=== PATIENT | male | born 1960 | race Caucasian/White ===

== ENCOUNTER → 2020-07-07 09:44 | Outpatient (BNVA) | payer OTHER, SELFPAY | PROVIDERS: Visit Provider Anesthesiology | DX: F10.20 Alcohol dependence, uncomplicated (principal); M54.5 Low back pain; M96.1 Postlaminectomy syndrome, not elsewhere classified | CPT/HCPCS: 99202 ==

== ENCOUNTER 2020-08-30 06:25 | Outpatient (REF) | payer OTHER, SELFPAY ==
--- NOTE | ~2020-08-30 | FL_ITS ---
EXAMINATION: XR FLUOROSCOPY WITH IMAGES CLINICAL INFORMATION: M96.1 - Postlaminectomy syndrome COMPARISON: None. TECHNIQUE: Fluoroscopy performed by Abbey Ramos NP. Fluoroscopy time: 0.8 minutes DAP: 4.67 Gycm2 Images: 8 FINDINGS: There are bilateral spinal needles overlying outer aspect of the T12-L1, L1-L2, L2-L3, L3-L4 neural foramen. There is contrast seen in the nerve sheaths and some transforaminal epidural extension on each side. No visible vascular communication. FL/FL guidance in treatment room IMPRESSION: Fluoroscopy for pain management procedures.
== END 2020-08-30 06:26 | disposition home or self-care (01) ==
LOC: HO.RADIR 06:25
PROVIDERS: Visit Provider Anesthesiology
DX: M96.1 Postlaminectomy syndrome, not elsewhere classified (principal); M54.5 Low back pain; F10.20 Alcohol dependence, uncomplicated
CPT/HCPCS: 64493; 64494; 64495; Q9967

== ENCOUNTER → 2020-09-07 10:48 | Outpatient (BNVA) | payer OTHER, SELFPAY | PROVIDERS: PCP Internal Medicine; Visit Provider Anesthesiology | DX: M54.5 Low back pain (principal); M96.1 Postlaminectomy syndrome, not elsewhere classified; F10.20 Alcohol dependence, uncomplicated | CPT/HCPCS: 99212 ==

== ENCOUNTER 2020-11-01 06:26 | Outpatient (REF) | payer OTHER, SELFPAY ==
--- NOTE | ~2020-11-01 | FL_ITS ---
EXAMINATION: FL XR WITH IMAGES CLINICAL INFORMATION: Post laminectomy syndrome. COMPARISON: Fluoroscopic spot views 08/30/2020. TECHNIQUE: Fluoroscopy performed by Abbey Ramos NP. Fluoroscopy Time: 0.8 minutes. DAP: 18.89 Gycm2. Images: 9. FINDINGS: There are bilateral spinal needles overlying outer aspect of the T12-L1, L1-L2, L2-L3, L3-L4 neural foramen. There is contrast in the respective nerve sheaths with some transforaminal epidural extension. No visible vascular communication. Again, there are multilevel degenerative changes lumbar spine with associated vertebral spurring and some accentuated concavity L1 endplate as before. FL/FL guidance in treatment room IMPRESSION: Fluoroscopy for pain management procedures.
== END 2020-11-01 06:27 | disposition home or self-care (01) ==
LOC: HO.RADIR 06:26
PROVIDERS: Visit Provider Anesthesiology
DX: M96.1 Postlaminectomy syndrome, not elsewhere classified (principal); M54.5 Low back pain; F10.20 Alcohol dependence, uncomplicated
CPT/HCPCS: 64490; 64491; 64493; Q9967

== ENCOUNTER → 2020-11-09 15:08 | Outpatient (BNVA) | payer OTHER, SELFPAY | PROVIDERS: PCP Internal Medicine; Visit Provider Anesthesiology | DX: M96.1 Postlaminectomy syndrome, not elsewhere classified (principal); M54.5 Low back pain; F10.20 Alcohol dependence, uncomplicated | CPT/HCPCS: 99212 ==

== ENCOUNTER 2021-01-16 11:06 | Outpatient (REF) | payer OTHER, SELFPAY ==
[2021-01-16 13:54] LABS: Prothrombin Time 11.4 SEC (9.9-13.0)
[2021-01-16 14:08] LABS: Alanine Aminotransferase 22 U/L (0-40); Albumin Level 4.6 g/dL (3.5-5.0); Alkaline Phosphatase 46 U/L (39-117); Anion Gap 16 (12-20); Aspartate Amino Transferase 26 U/L (5-37); Bilirubin Total 0.5 mg/dL (0.0-1.0); Blood Urea Nitrogen 10 mg/dL (9-16); Calcium 9.4 mg/dL (8.4-10.2); Carbon Dioxide 25 mmol/L (22-29); Chloride 101 mmol/L (96-108); Estimated Glomerular Filt Rate > 60; Glucose Random 104 mg/dL (60-115); Sodium 138 mmol/L (135-145); Total Protein 7.7 g/dL (6.5-8.0)
== END 2021-01-16 11:07 | disposition home or self-care (01) ==
LOC: HO.10HDL 11:06
PROVIDERS: Visit Provider Anesthesiology
DX: F10.20 Alcohol dependence, uncomplicated (principal)
CPT/HCPCS: 36415; 80053; 85610

== ENCOUNTER → 2021-01-30 10:21 | Outpatient (BNVA) | payer OTHER, SELFPAY | PROVIDERS: PCP Internal Medicine; Visit Provider Anesthesiology ==

== ENCOUNTER 2021-03-03 11:14 | Day surgery (SDC) | payer OTHER, SELFPAY ==
--- NOTE | 2021-03-02 14:35 | P.CONAN_ITS ---
Documented by User: Jenifer Robles NP 03/02/21 14:36 HPI - Anesthesia Eval Consult details Narrative: 60yo M for Lumbar Spinal Cord Stimulation Trial [facility] Active Problems Active Problems: All Active Problems (Updated 07/07/20 @ 11:05 by Vik Ulloa MD) Low back pain (Acute) Postlaminectomy syndrome (Acute) Alcoholism (Acute) Past Medical History Medical History (Updated 07/07/20 @ 11:05 by Vik Ulloa MD) Alcoholism Low back pain Postlaminectomy syndrome Social History Social History Patient Tobacco Use Status: Current everyday Tobacco user Tobacco use type: Cigarette Cigarette Packs Per Day: 0.5 Cigarettes Per Day: 10.0 Use of substances other than those prescribed or required for medical reasons: Yes Substance Use Frequency: Daily Are you DNR?: No Advance Directives: No Advance Directives Information Provided: Yes Meds Allergies Allergy/AdvReac Type Severity Reaction Status Date / Time codeine AdvReac upset Verified 01/30/21 10:22 stomach Home Medications Medication Instructions Recorded Confirmed Last Taken Type amlodipine 5 mg tablet 5 mg PO DAILY 07/07/20 08/30/20 Unknown History atorvastatin 20 mg tablet 20 mg PO BEDTIME 07/07/20 08/30/20 Unknown History omeprazole 40 mg capsule,delayed 40 mg PO DAILY 07/07/20 08/30/20 Unknown History release pregabalin 150 mg capsule 150 mg PO BID 07/07/20 08/30/20 Unknown History Exam Exam Date and Time: March 02, 2021 1435 Pertinent Lab Results Pertinent Lab Results: Laboratory Tests 01/16/21 01/16/21 11:00 11:00 PT 11.4 INR 1.0 Sodium 138 Potassium 4.0 Chloride 101 Carbon Dioxide 25 BUN 10 Creatinine 0.91 Assessment and Plan Assessment Anesthesia Assessment: Chart Reviewed Documented by User: Dustin Larson MD 03/03/21 12:05 [facility] Past Medical History Medical History (Updated 07/07/20 @ 11:05 by Vik Ulloa MD) Alcoholism Low back pain Postlaminectomy syndrome Family History Family history of problems with anesthesia: No Surgical History History of Problems with Anesthesia: No Social History Social History Patient Tobacco Use Status: Current everyday Tobacco user Tobacco use type: Cigarette Cigarette Packs Per Day: 0.5 Cigarettes Per Day: 10.0 Use of substances other than those prescribed or required for medical reasons: Yes Substance Use Frequency: Daily Are you DNR?: No Advance Directives: No Advance Directives Information Provided: Yes Meds Allergies Allergy/AdvReac Type Severity Reaction Status Date / Time codeine AdvReac upset Verified 01/30/21 10:22 stomach Home Medications Medication Instructions Recorded Confirmed Last Taken Type amlodipine 5 mg tablet 5 mg PO DAILY 07/07/20 08/30/20 Unknown History atorvastatin 20 mg tablet 20 mg PO BEDTIME 07/07/20 08/30/20 Unknown History omeprazole 40 mg capsule,delayed 40 mg PO DAILY 07/07/20 08/30/20 Unknown History release pregabalin 150 mg capsule 150 mg PO BID 07/07/20 08/30/20 Unknown History Exam Airway Mallampati Class: III TM Dist: >3cm Neck ROM: Full Denture: Upper and Lower Heart: rrr +s1s2 Lungs: cta b/l Assessment and Plan Assessment Anesthesia Assessment: Anesthesia Plan Discussed Final Anesthetic Review Family History of Problems with Anesthesia: No History of Problems with Anesthesia: No NPO: Yes ASA Class: III Final Preanesthetic Review: No Changes in Pt Med Stat, Meds/Allgs Chart Reviewed, Consent Obtained/Reviewed and Anes Risks/Benef Reviewed Patient Risk: Intermediate Procedure Risk: Intermediate Assessment/Block/Sedation in SS: Assess/Block/Sedation-SS Anesthetic Plan Anesthetic Plan: MAC: and Agree w/ Assess. and Plan Disposition: Standard PACU
--- NOTE | ~2021-03-03 | FL_ITS ---
EXAMINATION: XR FLUOROSCOPY WITH IMAGES CLINICAL INFORMATION: Lumbar spinal cord stimulator trial. COMPARISON: None. TECHNIQUE: Fluoroscopy performed by Dr. Vik Ulloa. Fluoroscopy time: 2.4 minutes DAP: 34.1 mGycm2 Images: 4 FINDINGS: There are 2 posterior epidural stimulators overlying the T7-T8 through T9-T10 disc levels. There is moderate spondylosis dorsal spine. No lytic process. Posterior spinal epidural stimulators as described above. FL/FL guidance in OR IMPRESSION: Fluoroscopy was provided to referring physician during spinal stimulator insertion. Visualized bones and soft tissues are grossly unremarkable.
[2021-03-03 11:29] VITALS: BMI 24.2
[2021-03-03 11:38] VITALS: BP 137/83; PULSE 83; RESP 16; TEMP 36.5; O2SAT 98
[2021-03-03] MEDS: Lactated Ringers 1,000 ML 100 ML IVCONT (11:46)
--- NOTE | 2021-03-03 13:09 | P.OP_ITS ---
Operative Note Operative Note Date of Service: 03/03/21 Narrative: Siddhartha is very pleasant 60 years old gentleman who came today into the operating room for trial of spinal cord stimulator for the treatment of post laminectomy syndrome. Preoperatively patient received cefasolin 2 g approxim ately 30 minutes before the procedure. After obtaining informed consent the patient was brought to the operating room, HE was positioned prone on operating table, [place] [employer] monitors were applied and patient was deeply sedated.? Time-out was performed delineating correct site, side, the nature of the procedure, patient's allergy, preoperative antibiotic if needed.? All operating room staff was participating in OR time-out procedure. Patient's entire back was prepped with DuraPrep twice and draped with full body fenestrated drape.? Sterilely draped C-arm was brought over operating field and sqare picture of T11-T12 L1 L2 vertebrae as were demonstrated on the screen.? Attention FIRST? was concentrated on the T12-L1 epidural interspace.? The location of the projection of the right pedicle center of the? L2 vertebra was found on the skin using C-arm.? This location was injected with mixture of lidocaine 2% and Marcaine 0.5% 5 cc.? After that 11 blade was used to make a tomas on the skin.? 10 cm 14 gauge? introducer epidural needle was inserted through the tomas and advanced to? T12-L1 epidural interspace.? The advancement of the needle was performed on anterior posterior and lateral views.? Guitar wire and loss of resistance technique were used to locate epidural space.? When guitar wire was spread in the epidural fashion, epidural lead was inserted throu gh the skin and it was advanced to middle of T8 position? SLIGHTLY left OF THE MIDLINE.? After that location of the projection of the LEFT pedicle center of the L2 vertebra was found on the skin using C-arm.? This location was injected with mixture of lidocaine 2% and Marcaine 0.5% 5 cc.? After that 11 blade was used to make a tomas on the skin.? 10 cm 14 gauge curved introducer epidural needle was inserted through the tomas and advanced to L1-L2 epidural interspace.? The advancement of the needle was performed on anterior posterior and lateral views.? Guitar wire and loss of resistance technique were used to locate epidural space.? When guitar wire was spread in the epidural fashion, epidural lead was inserted through the needle and advanced to the middle of T9 epidural interspace slightly right to the existing electrode. Impedance was checked and was satisfactory .The needles were withdrawn, the stylette wires were removed from the epidural leads.? The anchoring devices were dislodged on the leads and advanced to the level of the skin.? The anchoring devices were sutured with two 0-0 silk sutures per each anchor to the skin of the patient. The central fixation screw of each anchor was rotated until three clicks were heard. The leads were connected to testing device.? Bacitracin ointment was applied to the entrance point of bilateral needles.? Sterile dressing was applied to the patient's back.? The testing device was also glued to the patient's back.?
--- NOTE | 2021-03-03 13:09 | MHC.SHP ---
Pre-Procedural Eval Section A Date of Service: 03/03/21 The patient is an INPATIENT: No Changes since office visit: Yes Patient answered all questions The History & Physical has been completed within 30 days and I have reviewed it.: No Section B Chief Complaint: low back pain,postlaminectomy Details of Present Illness: As above Relevant Family History (Specify if Yes): No Relevant Social History: None Present Medications: see Short Stay Collaborative assessment Medical History: No relevant PMH History of Previous Operations: Relevant previous surgery/procedure and date(s) Allergies: Allergies Allergy/AdvReac Type Severity Reaction Status Date / Time codeine AdvReac upset Verified 01/30/21 10:22 stomach Review of Systems Sugical H&P ROS: Negative: Constitution, Cardiovascular, Respiratory, Neurological, Psychiatric, Hem-Onc, Allergic/Immunologic, Gastrointestinal, Genitourinary, Musculoskeletal, Integumentary, Endocrine and Eyes/Ears/Nose/Throat Exam Surgical H&P Exam: Normal: HEENT, Normal: Heart, Normal: Lungs, Normal: Extremities, Normal: Abdomen, Normal: Skin and Normal: Neurological Plan Diagnosis/Plan: Unchanged I have reviewed the history and physical and performed a pertinent physical examination on my patient. No changes have occurred unless specified.
--- NOTE | 2021-03-03 14:28 | PM.OP ---
Brief Operative Note Date of Service: 03/03/21 Pre-op diagnosis: Postlaminectomy syndrome lumbar spine Post-op diagnosis: same Procedure: Trial of Nevro spinal cord stimulator Implants: None permanent Surgeon: Vik Ulloa MD Anesthesia: MAC Was an Claim Analyst used for this Procedure?: No Estimated blood loss (mL): 3 Pathology: none sent Condition: stable Disposition: PACU
[2021-03-03 14:30] VITALS: BP 122/63; PULSE 98; RESP 16; TEMP 36.1; O2SAT 99
[2021-03-03 14:35] VITALS: BP 136/90; PULSE 82; RESP 16; O2SAT 97
[2021-03-03 14:45] VITALS: BP 152/86; PULSE 88; RESP 16; O2SAT 97
[2021-03-03 15:00] VITALS: BP 156/88; PULSE 81; RESP 16; TEMP 36.1; O2SAT 97
[2021-03-03] MEDS: oxyCODONE HCl Immed Release 5 MG TABLET 10 MG PO (15:20)
== END 2021-03-03 15:49 | disposition home or self-care (01) ==
PROVIDERS: PCP Internal Medicine; Visit Provider Anesthesiology
PROC: (CPT 63650; principal; 2021-03-03 13:00)
DX: M54.50 Low back pain, unspecified (principal); M96.1 Postlaminectomy syndrome, not elsewhere classified
CPT/HCPCS: 63650; C1778; J0690; J2250; J3010

== ENCOUNTER → 2021-03-09 10:28 | Outpatient (BNVA) | payer OTHER, SELFPAY | PROVIDERS: PCP Internal Medicine; Visit Provider Anesthesiology | DX: M96.1 Postlaminectomy syndrome, not elsewhere classified (principal); M54.50 Low back pain, unspecified; B19.20 Unspecified viral hepatitis C without hepatic coma; F10.20 Alcohol dependence, uncomplicated; F17.210 Nicotine dependence, cigarettes, uncomplicated; Z88.6 Allergy status to analgesic agent | CPT/HCPCS: 99212 ==

== ENCOUNTER → 2021-03-10 10:23 | Outpatient (BNVA) | payer OTHER, SELFPAY | PROVIDERS: PCP Internal Medicine; Visit Provider Anesthesiology ==

== ENCOUNTER → 2021-03-20 15:22 | Outpatient (BNVA) | payer OTHER, SELFPAY | PROVIDERS: PCP Internal Medicine; Visit Provider Anesthesiology ==

== ENCOUNTER → 2021-04-17 14:05 | Outpatient (BNVA) | payer OTHER, SELFPAY | PROVIDERS: Visit Provider Anesthesiology ==

== ENCOUNTER 2021-06-23 06:04 | Day surgery (SDC) | payer OTHER, SELFPAY ==
[2021-06-19 14:03] VITALS: BMI 24.2
--- NOTE | 2021-06-22 10:38 | P.CONAN_ITS ---
Documented by User: Jeniefr Robles NP 06/22/21 10:41 HPI - Anesthesia Eval Consult details Narrative: 60yo M for Lumbar Spinal Cord Stimulation Implant s/p trial 02/2021 with MAC [facility] Active Problems Active Problems: All Active Problems (Updated 07/07/20 @ 11:05 by Vik Ulloa MD) Low back pain (Acute) Postlaminectomy syndrome (Acute) Alcoholism (Acute) Past Medical History Medical History Alcoholism Low back pain Postlaminectomy syndrome Family History Family history of problems with anesthesia: No Surgical History History of Problems with Anesthesia: No Social History Social History Patient Tobacco Use Status: Current everyday Tobacco user Tobacco use type: Cigarette Cigarette Packs Per Day: 0.5 Cigarettes Per Day: 10.0 Use of substances other than those prescribed or required for medical reasons: No Are you DNR?: No Advance Directives: No Advance Directives Information Provided: Yes Recently lost weight without trying: No Nutrition Risks: No Nutritional Risk Meds Allergies Allergy/AdvReac Type Severity Reaction Status Date / Time codeine AdvReac upset Verified 03/20/21 15:23 stomach Home Medications Medication Instructions Recorded Confirmed Last Taken Type amlodipine 5 mg 5 mg PO DAILY 07/07/20 08/30/20 06/23/21 History tablet atorvastatin 20 20 mg PO BEDTIME 07/07/20 08/30/20 Unknown History mg tablet omeprazole 40 mg 40 mg PO DAILY 07/07/20 08/30/20 Unknown History capsule,delayed release pregabalin 150 mg 150 mg PO BID 07/07/20 08/30/20 Unknown History capsule Exam Exam Date and Time: June 22, 2021 1038 Height,Weight and Vital Signs: Height 5 ft 6 in Weight 68.039 kg Pertinent Lab Results Pertinent Lab Results: Laboratory Tests ?? 01/16/21 01/16/21 ?? 11:00 11:00 PTPT ?11.4 ? INRINR ?1.0 ? SodiumSodium ? ?138 PotassiumPotassium ? ?4.0 ChlorideChloride ? ?101 CarbonCarbon Dioxide ? ?25 BUNBUN ? ?10 CreatinineCreatinine ? ?0.91 Assessment and Plan Assessment Anesthesia Assessment: Chart Reviewed Final Anesthetic Review Family History of Problems with Anesthesia: No History of Problems with Anesthesia: No Documented by User: Kristyn Lauren MD 06/23/21 07:50 PMF Past Medical History Medical History Alcoholism Low back pain Postlaminectomy syndrome Social History Social History Patient Tobacco Use Status: Current everyday Tobacco user Tobacco use type: Cigarette Cigarette Packs Per Day: 0.5 Cigarettes Per Day: 10.0 Use of substances other than those prescribed or required for medical reasons: No Are you DNR?: No Advance Directives: No Advance Directives Information Provided: Yes Recently lost weight without trying: No Nutrition Risks: No Nutritional Risk Meds Allergies Allergy/AdvReac Type Severity Reaction Status Date / Time codeine AdvReac upset Verified 03/20/21 15:23 stomach Home Medications Medication Instructions Recorded Confirmed Last Taken Type amlodipine 5 mg 5 mg PO DAILY 07/07/20 08/30/20 06/23/21 History tablet atorvastatin 20 20 mg PO BEDTIME 07/07/20 08/30/20 Unknown History mg tablet omeprazole 40 mg 40 mg PO DAILY 07/07/20 08/30/20 Unknown History capsule,delayed release pregabalin 150 mg 150 mg PO BID 07/07/20 08/30/20 Unknown History capsule Exam Airway Mallampati Class: I (Edentulous) TM Dist: >3cm Loose/Missing/Broken Teeth: Yes, Upper and Lower Heart: RRR Lungs: CTA Assessment and Plan Assessment Anesthesia Assessment: Anesthesia Plan Discussed Final Anesthetic Review NPO: Yes ASA Class: II Final Preanesthetic Review: Meds/Allgs Chart Reviewed, Consent Obtained/Reviewed and Anes Risks/Benef Reviewed Patient Risk: Low Procedure Risk: Intermediate Anesthetic Plan Anesthetic Plan: GA Disposition: Standard PACU
[2021-06-23] VITALS (7 sets, daily range): BP systolic 115–142; BP diastolic 74–90; PULSE 70–94; RESP 12–20; TEMP 36.9–37.2; O2SAT 96–100; BMI 24.2
--- NOTE | ~2021-06-23 | FL_ITS ---
EXAMINATION: XR FLUOROSCOPY WITH IMAGES CLINICAL INFORMATION: Lumbar spinal cord stimulator implant. COMPARISON: None. TECHNIQUE: Fluoroscopy performed by Dr. Vik Ulloa. Fluoroscopy time: 6.8 minutes DAP: 24.8 Gy-cm2 Images: 4 FINDINGS: There are 4 images of the lower dorsal spine obtained. There are 2 spinal cord stimulator implants seen in the posterior epidural space extending from T8 through T12 vertebrae. FL/FL guidance in OR IMPRESSION: Posterior epidural lower thoracic spinal stimulator insertion performed from at fluoroscopy.
[2021-06-23] MEDS: Lactated Ringers 1,000 ML 100 ML IVCONT (06:36)
--- NOTE | 2021-06-23 07:34 | MHC.SHP ---
Pre-Procedural Eval Section A Date of Service: 06/23/21 Section B Chief Complaint: postlaminectomy syndrome Details of Present Illness: As Above Relevant Family History (Specify if Yes): No Relevant Social History: None Present Medications: see Short Stay Collaborative assessment Medical History: No relevant PMH History of Previous Operations: Relevant previous surgery/procedure and date(s) Allergies: Allergies Allergy/AdvReac Type Severity Reaction Status Date / Time codeine AdvReac upset Verified 03/20/21 15:23 stomach Review of Systems Sugical H&P ROS: Negative: Constitution, Cardiovascular, Respiratory, Neurological, Psychiatric, Hem-Onc, Allergic/Immunologic, Gastrointestinal, Genitourinary, Musculoskeletal, Integumentary, Endocrine and Eyes/Ears/Nose/Throat Exam Surgical H&P Exam: Normal: HEENT, Normal: Heart, Normal: Lungs, Normal: Extremities, Normal: Abdomen, Normal: Skin and Normal: Neurological Plan Diagnosis/Plan: Unchanged I have reviewed the history and physical and performed a pertinent physical examination on my patient. No changes have occurred unless specified.
[2021-06-23] MEDS: Albuterol Sulfate (0.083%) 2.5 MG/3 ML VIAL.NEB INHALE (07:50)
--- NOTE | 2021-06-23 10:29 | W.PM.OPN ---
Operative Note Operative Note Date of Service: 06/23/21 Narrative: Siddhartha is very pleasant 60 years old gentleman who came today the operating room for the implant of Nevro spinal cord stimulator for the treatment of mostly axial lower back pain . After obtaining informed consent patient was brought to the operating room, he was positioned supine on the stretcher, [place] [employer] of [employer] monitors were applied and patient was induced with general anesthesia with endotracheal intubation.? After that patient was transferred on the operating table prone, all pressure points were protected. ? Time-out was performed delineating correct site, side, the nature of the procedure, patient's allergy, preoperative antibiotic if needed.? All operating room staff was participating in OR time-out procedure. Time-out was performed delineating correct site, side, the nature of the procedure, patient's allergy, preoperative antibiotic.? All operating room staff was participating in OR time-out procedure. Patient's entire back was prepped with DuraPrep twice and draped with full body drape including [place] film.? Sterilely draped C-arm was brought over operating field and square picture of T12, L1, L2?vertebrae? were demonstrated on the screen.? The location of the lower lumbar spine fusion hardware was noted on the screen. THE PROJECTION OF? L1-L2 and L3?SPINOUS PROCESSES TO THE SKIN WERE INFILTRATED WITH LIDOCAINE 2% MIXED WITH BUPIVACAINE 0.5%.? 6 CM LONG VERTICAL INCISION using a 10 blade scalpel WAS PERFORMED IN STRICT MIDLINE VERTICAL FASHION.? THOROUGH HEMOSTASIS WAS PERFORMED using electrocautery. ?Thorough tissue dissections was performed until prevertebral fascia was freed from overlying tissues.? Attention FIRST? was concentrated on the RIGHT T12-L1 epidural interspace.? The location of the projection of the right pedicle center of the?L2?vertebra was found on the prevertebral fascia using C-arm. 10 cm 14 gauge straight introducer epidural needle was inserted through the fascia and advanced toward?T12-L1 epidural interspace.? The advancement of the needle was performed on anterior posterior and lateral views.? Guitar wire and loss of resistance technique were used to locate epidural space.?When loss of resistance was felt in the needle, guitar wire was obtained inserted into the needle and spread in epidural fashion. After that epidural lead was inserted through the needle and it was advanced to the position in the POSTERIOR EPIDURAL SPACE Slightly right to MIDLINE at the posterior T8 vertebral body body epidural space. After that location of the projection of the LEFT pedicle center of the L2 vertebra was found -using C-arm.? This location was injected with mixture of lidocaine 2% and Marcaine 0.5% 5 cc.? Again here 10 cm 14 gauge straight epidural needle was inserted through the prevertebral fascia and advanced to T12-L1 intervertebral interspace now on the left side.? Loss of resistance to air technique was used to locate epidural space and guitar wire was used to confirm position of the epidural space. When guitar wire was spread in the epidural fashion, epidural lead was inserted through the needle and advanced to the T9 POSTERIOR EPIDURAL SPACE?LEFT to the existing LEAD.? THE LOCATION OF BOTH LEADS WAS VERIFIED ON ANTERIOR POSTERIOR AND LATERAL VIEWS. After satisfactory position of the leads were established the needles were withdrawn, the stylette wires were removed from the epidural leads.? The anchoring devices were dislodged on the leads and advanced to the level of the prevertebral fascia.? The anchoring devices were advanced along the epidural leads and dislodged on epidural leads at the level of prevertebral fascia.? They were sutured to prevertebral fascia with 2 separate Tycron 1-0 sutures per each anchoring device.? The fixating screws were fixed until 3 clicks were heard on each anchoring device. After that the wound was irrigated with copious amount of Vancomycin containing normal saline and packed with Vancomycin soaked 4 x 4. ?After that attention was concentrated on the left upper buttock??of the patient?where he wanted the? battery to be implanted.?Using 10 scalpel 6 cm long horizontal incision was performed 3 cm below the projection to the skin of the left iliac creest. ? The wound was deepened and widened and thorough hemostasis was performed. The pocket was created to accommodate the battery. Irrigation with vancomycin containing saline was performed.After that the? tunneling device was used to connect midline incision and the left upper buttock incision. Thorough hemostasis was performed. ?? After that tunneling device was used to connect both wounds and dislodge epidural leads from midline wound to the lateral wound in the upper Left buttock..? The epidural lead's contacting ends were connected to the battery. The impedance was satisfactory. After that both wounds were thoroughly irrigated with normal saline containing vancomycin.? Tycron 1 0 Sutures were applied to the most superior lateral and most superior medial corners of the? wound.? Those sutures were tied after the battery was inserted into the pocket with the epidural leads collected behind the body of the battery.. After that 0 [place] sutures were used to close both wounds.?0-2 [place] surures were used to approximate the level of the skin on the both wounds.? [place] were applied to skin level.? Bacitracin ointment was smeared on the staple line.? Sterile dressing was applied.? Abdominal binder was applied.? The patient was transferred to the stretcher, awaken, and in stable condition transferred to PACU.?
--- NOTE | 2021-06-23 10:37 | P.BOP_ITS ---
Brief Operative Note Date of Service: 06/23/21 Pre-op diagnosis: Postlaminectomy syndrome Post-op diagnosis: same Procedure: Implantation of Nevro spinal cord stimulator. Implants: implantation of the Nevro spinal cord stimulator battery omnia and 2 epidural leads in thoracic position. Surgeon: Vik Ulloa MD Anesthesia: GETA Was an Grain Unloader Machine used for this Procedure?: No Estimated blood loss (mL): 10 Pathology: none sent Condition: stable Disposition: PACU
== END 2021-06-23 12:22 | disposition home or self-care (01) ==
PROVIDERS: PCP Internal Medicine; Visit Provider Anesthesiology
PROC: (CPT 63685; principal; 2021-06-23 07:30)
DX: M96.1 Postlaminectomy syndrome, not elsewhere classified (principal); M54.50 Low back pain, unspecified; Z96.643 Presence of artificial hip joint, bilateral; Z86.19 Personal history of other infectious and parasitic diseases; Z79.899 Other long term (current) drug therapy; Z88.8 Allergy status to other drugs, medicaments and biological substances; F10.20 Alcohol dependence, uncomplicated; F17.210 Nicotine dependence, cigarettes, uncomplicated
CPT/HCPCS: 63685; 63650 ×2; 94640; C1713; C1778; C1787; C1816; J0690; J1100; J1170; J2250; J2370; J2405; J3010; J3370

== ENCOUNTER → 2021-06-29 10:00 | Outpatient (BNVA) | payer OTHER, SELFPAY | PROVIDERS: PCP Internal Medicine; Visit Provider Anesthesiology | DX: M54.50 Low back pain, unspecified (principal); M96.1 Postlaminectomy syndrome, not elsewhere classified; F10.20 Alcohol dependence, uncomplicated | CPT/HCPCS: 99212 ==

== ENCOUNTER → 2021-07-06 09:59 | Outpatient (BNVA) | payer OTHER, SELFPAY | PROVIDERS: PCP Internal Medicine; Visit Provider Anesthesiology | DX: M54.50 Low back pain, unspecified (principal); M96.1 Postlaminectomy syndrome, not elsewhere classified; F10.20 Alcohol dependence, uncomplicated; Z96.82 Presence of neurostimulator | CPT/HCPCS: 99212 ==

== ENCOUNTER 2021-07-13 | Outpatient (REF) | payer OTHER, SELFPAY | END 2021-07-13 00:01 | LOC: HO.LAB | PROVIDERS: PCP Internal Medicine; Visit Provider Anesthesiology | DX: M96.1 Postlaminectomy syndrome, not elsewhere classified (principal); G97.1 Other reaction to spinal and lumbar puncture; M54.50 Low back pain, unspecified; F10.20 Alcohol dependence, uncomplicated; F17.210 Nicotine dependence, cigarettes, uncomplicated; Z96.82 Presence of neurostimulator; Z88.6 Allergy status to analgesic agent; Z48.02 Encounter for removal of sutures | CPT/HCPCS: 99212 ==

== ENCOUNTER → 2021-08-03 08:32 | Outpatient (BNVA) | payer OTHER, SELFPAY | PROVIDERS: PCP Internal Medicine; Visit Provider Anesthesiology | DX: M96.1 Postlaminectomy syndrome, not elsewhere classified (principal); M54.50 Low back pain, unspecified; F10.20 Alcohol dependence, uncomplicated; R51.9 Headache, unspecified | CPT/HCPCS: 99212 ==

== ENCOUNTER 2021-08-08 06:17 | Outpatient (REF) | payer OTHER, SELFPAY ==
--- NOTE | ~2021-08-08 | FL_ITS ---
EXAMINATION: XR FLUOROSCOPY WITH IMAGES CLINICAL INFORMATION: Other reaction to spinal and lumbar puncture. Blood patch. COMPARISON: Previous exam June 2021. TECHNIQUE: Fluoroscopy performed by Rachel. Fluoroscopy time: 0.4 minutes DAP: 6 Gycm2 Images: 1 FINDINGS: Image demonstrates 2 leads in the lower thoracic spinal canal. FL/FL guidance in treatment room IMPRESSION: Fluoroscopy guidance for pain management procedure.
== END 2021-08-08 06:18 | disposition home or self-care (01) ==
LOC: HO.RADIR 06:17
PROVIDERS: Visit Provider Anesthesiology
DX: G97.1 Other reaction to spinal and lumbar puncture (principal); M54.50 Low back pain, unspecified; M96.1 Postlaminectomy syndrome, not elsewhere classified; F10.20 Alcohol dependence, uncomplicated
CPT/HCPCS: 62273; J0690; Q9967

== ENCOUNTER 2023-01-28 08:29 | Outpatient (AMB) | payer OTHER, SELFPAY ==
--- NOTE | 2023-01-28 08:33 | MHC.OFFVIS ---
Intake Vital Signs 01/28/23 08:39 Height 5 ft 6 in Weight 145 lb 2 oz BMI 23.4 BP 184/96 H Blood Pressure Location Rt brachial Position Sitting Pulse 100 Pulse Source Pulse Oximeter Pulse Oximetry (%) 99 Oxygen Delivery Method Room Air Intake Visit Reasons: SCS ISSUES Intake Note: Pt here for eval of SCS -states stopped working 1 week ago. Denies any strenuous activity. Called [facility] and spoke with Lopez who did testing over the phone and believes it could be lead wires. Pt c/o LBP rad down R LE Allergies codeine Adverse Reaction (Verified 01/28/23 08:41) upset stomach Medication List - Last Reconciled 01/28/23 by Kristyn Hammond RN alprazolam 0.5 mg PO ONCE 1 day amlodipine 5 mg PO DAILY atorvastatin 20 mg PO BEDTIME voapaarglh-aiklgybmxsobe-mxoy 50-300-40 mg (Fioricet) 1 cap PO Q6H PRN 30 days cephalexin 1,000 mg (2 x 500 mg) PO Q8H 14 days omeprazole 40 mg PO DAILY pregabalin 150 mg PO BID tizanidine 2 mg PO TID PRN 30 days HPI HPI Comments History of Present Illness Details Siddhartha is in the office as a follow-up after implantation of spinal cord stimulation. The device was implanted 1 year ago. It was working very well for the year however now patient reports that it stopped covering his pain. He reports again pain across the lumbar spine which is not affected by spinal cord stimulator. He denies any acute trauma, unusual movements, strenuous exercise. The patient nevertheless will be sent for the x-ray of the lumbar spine. If x-ray demonstrates appropriate position of the leads of the device MRI of the lumbar spine needs to be repeated. He has postlaminectomy syndrome and he had 2 surgeries on his back. He has min ectomy on lower lumbar spine but he has no hardware in the lower lumbar spine. Prior: ?lower back pain with most of his pain is in upper lumbar spine above the level of his surgery he reports tenderness on palpation in the projection of L1-L2 and L3 may be even L4 vertebra.? Multiple injection were performed to him as below which resulted in no pain improvement.? He had 1 week ago went for trial of [employer] spinal cord stimulator.? He reports that he has at least 75% pain improvement on the trial with spinal cord stimulator.? ?His past medical history significant for?hepatitis C. he has past surgical history of bilateral hip replacement and hernia repair.? He received multiple injections from 's office including epidural steroid injections, caudal steroid injections, facet joint injections, he reports no alleviation of the pain upon those injections.? He was a subject of physical therapy multiple times and he continues to do HEP.? L1-L2-L3-L4 medial branch block was performed to treat lower back pain.? It was diagnostic on the left side because patient reported pain radiating into the left lower extremity.? He reported complete pain relieve on the left side however he reported few hours after the injection pain on the right started to get stronger.? I repeated L1-L2-L3-L4 medial branch block bilateral on him to establish proper pain generator.? This time unfortunately patient said that the injection was not at all helpful for him. [facility] Medical History (Updated 01/28/23 @ 08:58 by Vik Ulloa MD) Post-dural puncture headache Low back pain Postlaminectomy syndrome Alcoholism Surgical History (Updated 07/04/21 @ 11:10 by Marina Back RN) Status post insertion of nerve stimulator Social History Patient Tobacco Use Status: Current everyday Tobacco user Tobacco use type: Cigarette Cigarette Packs Per Day: 0.5 Cigarettes Per Day: 10.0 Review of Systems Const All systems reviewed & are unremarkable except as noted in HPI and below Neuro Denies Abnormal speech present Physical Exam Vital Signs: Last Vital Signs Pulse 100 01/28/23 08:39 BP 184/96 H 01/28/23 08:39 Pulse Ox 99 01/28/23 08:39 Oxygen Delivery Method Room Air 01/28/23 08:39 BMI result Body Mass Index 23.4 Const Nutritional Appearance: obese morbidly obese Eyes General: appearance normal, both eyes and all related structures Pupils: Equal, round and reactive pupils present EOM: EOMs intact bilaterally Neck Neck: Yes full ROM Chest Chest palpation & inspection: normal inspection of the chest Resp Effort & Inspection: normal respiratory effort, able to speak in complete sentences, normal respiratory pattern, no audible wheezes and no cough Cardio Jugular venous distension: no JVD GI Inspection: Yes normal to inspection Back/Spine/Pelvis Other: Tenderness of palpation in paraspinal spinal region in projection of L1-L2 L3 and L4 vertebra. Very well-healed scar in the projection L4-5 and S1 vertebra paraspinal regions and spinal regions in projection of L5 are L5 and S1 vertebra is are not tender on palpation. Flexing forward alleviates his pain and flexing backward aggravates his pain. Straight leg rising is negative for pain increase. Neri test is negative for pain increase. Lateral hip rotation aggravates pain in the hip but does not cause significant pain in the groin. Most likely this is a result of bilateral hip surgery. He denies incontinence with bowel and bladder. He denies urinary retention. He is able to stand on his toes and his heels demonstrating normal strength of bilateral lower extremities. Valsalva maneuver is negative for pain increase. Neuro General: CN's II-XI intact bilaterally Cranial nerves: Yes Equal, round and reactive pupils present Speech: No Abnormal speech present Gait exam (Neuro): Normal gait present Motor exam (neuro): 5/5 motor strength present throughout Sensory Exam: double simultaneous stimulation for sensation normal Extrem General: No pedal edema Assessment & Plan Assessment & Plan (1) Spinal cord stimulator dysfunction: Code(s): T85.192A - Other mechanical complication of implanted electronic neurostimulator of spinal cord electrode (lead), initial encounter (2) Low back pain: Code(s): M54.5 - Low back pain (3) Postlaminectomy syndrome: Code(s): M96.1 - Postlaminectomy syndrome, not elsewhere classified (4) Alcoholism: Code(s): F10.20 - Alcohol dependence, uncomplicated (5) Spondylosis of lumbar region without myelopathy or radiculopathy: Code(s): M47.816 - Spondylosis without myelopathy or radiculopathy, lumbar region Plan Patient after 1 year suffers from increased pain which is not covered by his spinal cord stimulator. He reported that for years it was a good coverage which relieve his pain however 1 week ago the pain came back as it was before. He reports that this is the same in nature pain he had when he had this procedure done with me. I will schedule him for x-ray of the thoracic spine to verify position of the leads. Possibility exist on further disease progression and MRI needs to be scheduled if leads are positioned appropriately. I will send him for x-ray of the thoracic spine AP lateral to verify position of the epidural leads. If epidural leads are in satisfactory position we would need to repeat MRI for the patient. Orders: Orders XR thoracic spine 3V Today T85.192A - Other mechanical complication of implanted electronic neurostimulator of spinal cord electrode (lead), initial encounter Coding Level of Care Code Est Pt Level 4 (82029) Diagnoses Spinal cord stimulator dysfunction T85.192A Low back pain M54.5 Postlaminectomy syndrome M96.1 Alcoholism F10.20 Spondylosis of lumbar region without myelopathy or radiculopathy M47.816
[2023-01-28 08:39] VITALS: BP 184/96; PULSE 100; O2SAT 99; BMI 23.4
== END 2023-01-28 08:45 | disposition home or self-care (01) ==
PROVIDERS: PCP Internal Medicine; Visit Provider Anesthesiology
DX: T85.192A Other mechanical complication of implanted electronic neurostimulator of spinal cord electrode (lead), initial encounter (principal); M54.50 Low back pain, unspecified; M96.1 Postlaminectomy syndrome, not elsewhere classified; F10.20 Alcohol dependence, uncomplicated; M47.816 Spondylosis without myelopathy or radiculopathy, lumbar region
CPT/HCPCS: 99214

== ENCOUNTER 2023-01-28 08:29 | Outpatient (REF) | payer OTHER, SELFPAY ==
--- NOTE | ~2023-01-28 | XR_ITS ---
EXAMINATION: XR THORACIC SPINE CLINICAL INFORMATION: Other mechanical complication of implanted electronic neurostimulator. COMPARISON: Fluoroscopy dated 08/08/2021. TECHNIQUE: Frontal, lateral and swimmer's of the thoracic spine were obtained. FINDINGS: Bony alignment is normal. There is a mild thoracic levoscoliosis. The thoracic disc spaces are well-maintained. No acute fracture or spondylolisthesis is seen. There is multi-level moderate to marked cervicothoracic spondylosis. The posterior elements are intact. The paravertebral soft tissues are unremarkable. Neurostimulator leads are seen with cephalad lead tips situated at the mid T8 level. XR/XR thoracic spine 3V IMPRESSION: 1. Neural stimulator paired lead tips are situated at the mid T8 level. 2. There is a mild thoracic levoscoliosis. 3. The thoracic disc spaces are well-maintained. 4. This multi-level moderate to marked cervicothoracic spondylosis.
== END 2023-01-28 08:30 | disposition home or self-care (01) ==
LOC: HO.XRAY 08:29
PROVIDERS: PCP Internal Medicine; Visit Provider Anesthesiology
DX: T85.192A Other mechanical complication of implanted electronic neurostimulator of spinal cord electrode (lead), initial encounter (principal); M54.50 Low back pain, unspecified; M96.1 Postlaminectomy syndrome, not elsewhere classified; F10.20 Alcohol dependence, uncomplicated; M47.816 Spondylosis without myelopathy or radiculopathy, lumbar region; Z79.899 Other long term (current) drug therapy
CPT/HCPCS: 72072; 99212

== ENCOUNTER → 2023-02-01 08:52 | Outpatient (BNVA) | payer OTHER, SELFPAY | PROVIDERS: PCP Internal Medicine; Visit Provider Anesthesiology ==

== ENCOUNTER 2023-02-04 09:21 | Outpatient (AMB) | payer OTHER, SELFPAY ==
--- NOTE | 2023-02-04 09:39 | A.OFFVIS_ITS ---
Intake Vital Signs 02/04/23 09:40 Height 5 ft 6 in Weight 151 lb BMI 24.4 BP 136/76 Blood Pressure Location Lt brachial Position Sitting Respiration 18 Pulse 80 Pulse Source Pulse Oximeter Pulse Oximetry (%) 96 Oxygen Delivery Method Room Air Intake Visit Reasons: XRAY FOLLOW UP Intake Note: patient comes in for xray follow up. Allergies codeine Adverse Reaction (Verified 02/04/23 09:39) upset stomach HPI HPI Comments History of Present Illness Details Siddhartha is in the office as a follow-up after implantation of spinal cord stimulation. The device was implanted 1 year ago. It was working very well for the year however now patient reports that it stopped covering his pain. He was sent for x-ray of the lumbar spine to check the position of the spinal cord stimulator. It appears to be slight shift in the position of the spinal cord stimulator and today he met [employer] call center representative who adjusted the stimulation. If this will not help the patient I strongly recommended him to consider revision procedure. We will reposition the SCS appropriately help his pain better. Prior: ?lower back pain with most of his pain is in upper lumbar spine above the level of his surgery he reports tenderness on palpation in the projection of L1-L2 and L3 may be even L4 vertebra.? Multiple injection were performed to him as below which resulted in no pain improvement.? He had 1 week ago went for trial of [employer] spinal cord stimulator.? He reports that he has at least 75% pain improvement on the trial with spinal cord stimulator.? ?His past medical history significant for?hepatitis C. he has past surgical history of bilateral hip replacement and hernia repair.? He received multiple injections from 's office including epidural steroid injections, caudal steroid injections, facet joint injections, he reports no alleviation of the pain upon those injections.? He was a subject of physical therapy multiple times and he continues to do HEP.? L1-L2-L3-L4 medial branch block was performed to treat lower back pain.? It was diagnostic on the left side because patient reported pain radiating into the left lower extremity.? He reported complete pain relieve on the left side however he reported few hours after the injection pain on the right started to get stronger.? I repeated L1-L2-L3-L4 medial branch block bilateral on him to establish proper pain generator.? This time unfortunately patient said that the injection was not at all helpful for him. [facility] Medical History (Updated 01/28/23 @ 08:58 by Vik Ulloa MD) Post-dural puncture headache Low back pain Postlaminectomy syndrome Alcoholism Surgical History (Updated 07/04/21 @ 11:10 by Marina Back RN) Status post insertion of nerve stimulator Social History Patient Tobacco Use Status: Current everyday Tobacco user Tobacco use type: Cigarette Cigarette Packs Per Day: 0.5 Cigarettes Per Day: 10.0 Review of Systems Const All systems reviewed & are unremarkable except as noted in HPI and below Neuro Denies Abnormal speech present Physical Exam Vital Signs: Last Vital Signs Pulse 80 02/04/23 09:40 Resp 18 02/04/23 09:40 BP 136/76 02/04/23 09:40 Pulse Ox 96 02/04/23 09:40 Oxygen Delivery Method Room Air 02/04/23 09:40 BMI result Body Mass Index 24.4 Const Nutritional Appearance: obese morbidly obese Eyes General: appearance normal, both eyes and all related structures Pupils: Equal, round and reactive pupils present EOM: EOMs intact bilaterally Neck Neck: Yes full ROM Chest Chest palpation & inspection: normal inspection of the chest Resp Effort & Inspection: normal respiratory effort, able to speak in complete sentences, normal respiratory pattern, no audible wheezes and no cough Cardio Jugular venous distension: no JVD GI Inspection: Yes normal to inspection Back/Spine/Pelvis Other: Tenderness of palpation in paraspinal spinal region in projection of L1-L2 L3 and L4 vertebra. Very well-healed scar in the projection L4-5 and S1 vertebra paraspinal regions and spinal regions in projection of L5 are L5 and S1 vertebra is are not tender on palpation. Flexing forward alleviates his pain and flexing backward aggravates his pain. Straight leg rising is negative for pain increase. Neri test is negative for pain increase. Lateral hip rotation aggravates pain in the hip but does not cause significant pain in the groin. Most likely this is a result of bilateral hip surgery. He denies incontinence with bowel and bladder. He denies urinary retention. He is able to stand on his toes and his heels demonstrating normal strength of bilateral lower extremities. Valsalva maneuver is negative for pain increase. Neuro General: CN's II-XI intact bilaterally Cranial nerves: Yes Equal, round and reactive pupils present Speech: No Abnormal speech present Gait exam (Neuro): Normal gait present Motor exam (neuro): 5/5 motor strength present throughout Sensory Exam: double simultaneous stimulation for sensation normal Extrem General: No pedal edema Assessment & Plan Assessment & Plan (1) Spinal cord stimulator dysfunction: Code(s): T85.192A - Other mechanical complication of implanted electronic neurostimulator of spinal cord electrode (lead), initial encounter (2) Low back pain: Code(s): M54.5 - Low back pain (3) Postlaminectomy syndrome: Code(s): M96.1 - Postlaminectomy syndrome, not elsewhere classified (4) Alcoholism: Code(s): F10.20 - Alcohol dependence, uncomplicated (5) Spondylosis of lumbar region without myelopathy or radiculopathy: Code(s): M47.816 - Spondylosis without myelopathy or radiculopathy, lumbar region Plan Patient after 1 year suffers from increased pain which is not covered by his spinal cord stimulator. He reported that for years it was a good coverage which relieve his pain however 1 week ago the pain came back as it was before. He reports that this is the same in nature pain he had when he had this procedure done with me. On the x-ray of the thoracic spine we saw some changes which could be evidence of electrode change position. He is here today to change his stimulation patterns with [employer]. If this will not help a think we should consider revision of the spinal cord stimulator. I will see him in 2-3 weeks to discuss these issues. Coding Level of Care Code Est Pt Level 3 (80730) Diagnoses Spinal cord stimulator dysfunction T85.192A Low back pain M54.5 Postlaminectomy syndrome M96.1 Alcoholism F10.20 Spondylosis of lumbar region without myelopathy or radiculopathy M47.816
[2023-02-04 09:40] VITALS: BP 136/76; PULSE 80; RESP 18; O2SAT 96; BMI 24.4
== END 2023-02-04 10:15 | disposition home or self-care (01) ==
PROVIDERS: PCP Internal Medicine; Visit Provider Anesthesiology
DX: T85.192A Other mechanical complication of implanted electronic neurostimulator of spinal cord electrode (lead), initial encounter (principal); M54.50 Low back pain, unspecified; M96.1 Postlaminectomy syndrome, not elsewhere classified; F10.20 Alcohol dependence, uncomplicated
CPT/HCPCS: 99213

== ENCOUNTER → 2023-02-04 09:21 | Outpatient (BNVA) | payer OTHER, SELFPAY | PROVIDERS: PCP Internal Medicine; Visit Provider Anesthesiology | DX: T85.192D Other mechanical complication of implanted electronic neurostimulator of spinal cord electrode (lead), subsequent encounter (principal); M54.50 Low back pain, unspecified; M96.1 Postlaminectomy syndrome, not elsewhere classified; M47.816 Spondylosis without myelopathy or radiculopathy, lumbar region; F10.20 Alcohol dependence, uncomplicated | CPT/HCPCS: 99212 ==

== ENCOUNTER 2023-03-15 09:21 | Outpatient (REF) | payer OTHER, SELFPAY ==
--- NOTE | ~2023-03-15 | XR_ITS ---
EXAMINATION: XR LUMBOSACRAL SPINE WITH OBLIQUES CLINICAL INFORMATION: Postlaminectomy syndrome. COMPARISON: Thoracic spine 01/28/2023. TECHNIQUE: AP, both oblique, and lateral views of the lumbar spine. Lateral view of the lumbosacral junction. FINDINGS: Bilateral hip arthroplasties incompletely imaged. Neurostimulator electronic pack overlies the left iliac wing, incompletely imaged, with leads projecting cephalad towards the lower thoracic spine and above the upper limits of the radiographs. Dextroscoliosis of the lumbar spine. Surgical neena overlie the pelvis. Advanced facet arthritis in the lower lumbar spine. Atherosclerotic aortoiliac calcifications. Multilevel lumbar spondylosis with hypertrophic change. Loss of disc space height with superior and inferior compression deformities at L1 as well as possible superior compression deformities with sclerosis at L2 and L3. Grade 1 retrolisthesis of L3 on L4. Grade 1 anterolisthesis of L4 on L5 with moderate loss of disc space height. Moderate loss of disc space height with hypertrophic change at L5-S1. Degenerative changes in the bilateral sacroiliac joints. XR/XR lumbar spine 4V min IMPRESSION: Advanced multilevel degenerative changes with associated findings in the lumbar spine as detailed above. Additional imaging with CT scan or MRI should be considered for better visualization as these modalities are much more sensitive for detection of fracture or other underlying pathology.
== END 2023-03-15 09:22 | disposition home or self-care (01) ==
LOC: HO.XRAY 09:21
PROVIDERS: PCP Internal Medicine; Visit Provider Anesthesiology
DX: M96.1 Postlaminectomy syndrome, not elsewhere classified (principal)
CPT/HCPCS: 72110

== ENCOUNTER 2023-03-25 14:43 | Outpatient (AMB) | payer OTHER, SELFPAY ==
--- NOTE | 2023-03-25 14:47 | MHC.OFFVIS ---
Intake Vital Signs 03/25/23 14:51 Height 5 ft 6 in Weight 152 lb BMI 24.5 BP 134/62 Blood Pressure Location Lt brachial Position Sitting Respiration 16 Pulse 96 Pulse Source Pulse Oximeter Pulse Oximetry (%) 96 Oxygen Delivery Method Room Air Intake Visit Reasons: XRAY FOLLOW UP/RESULTS/confirmed Intake Note: patient comes in for xray results. Allergies codeine Adverse Reaction (Verified 03/25/23 14:51) upset stomach HPI HPI Comments History of Present Illness Details Siddhartha is in the office as a follow-up after implantation of spinal cord stimulation. The device was implanted 1 year ago. It was working very well for the year however now patient reports that it stopped covering his pain. He was sent for x-ray of the lumbar spine to check the position of the spinal cord stimulator. Thoracic spine x-ray also was performed. The top most portion of the both electrodes is in mid T8 vertebral body position. Although the left electrode shifted slightly down and right electrode appeared to be scaling slightly up and both of them are positioned now in parallel from mid T8 to bottom of T10 vertebra is it appears that both of them are covering sweet spot of T9-T10 successfully. At this time I am not convinced that revision is necessary. He probably needs to follow-up with commercial pest control representative of [employer] and try to adjust the programs to his satisfaction. Prior: ?lower back pain with most of his pain is in upper lumbar spine above the level of his surgery he reports tenderness on palpation in the projection of L1-L2 and L3 may be even L4 vertebra.? Multiple injection were performed to him as below which resulted in no pain improvement.? He had 1 week ago went for trial of [employer] spinal cord stimulator.? He reports that he has at least 75% pain improvement on the trial with spinal cord stimulator.? ?His past medical history significant for?hepatitis C. he has past surgical history of bilateral hip replacement and hernia repair.? He received multiple injections from 's office including epidural steroid injections, caudal steroid injections, facet joint injections, he reports no alleviation of the pain upon those injections.? He was a subject of physical therapy multiple times and he continues to do HEP.? L1-L2-L3-L4 medial branch block was performed to treat lower back pain.? It was diagnostic on the left side because patient reported pain radiating into the left lower extremity.? He reported complete pain relieve on the left side however he reported few hours after the injection pain on the right started to get stronger.? I repeated L1-L2-L3-L4 medial branch block bilateral on him to establish proper pain generator.? This time unfortunately patient said that the injection was not at all helpful for him. [facility] Medical History (Updated 01/28/23 @ 08:58 by Vik Ulloa MD) Post-dural puncture headache Low back pain Postlaminectomy syndrome Alcoholism Surgical History (Updated 07/04/21 @ 11:10 by Marina Back RN) Status post insertion of nerve stimulator Social History Patient Tobacco Use Status: Current everyday Tobacco user Tobacco use type: Cigarette Cigarette Packs Per Day: 0.5 Cigarettes Per Day: 10.0 Review of Systems Const All systems reviewed & are unremarkable except as noted in HPI and below Neuro Denies Abnormal speech present Physical Exam Vital Signs: Last Vital Signs Pulse 96 03/25/23 14:51 Resp 16 03/25/23 14:51 BP 134/62 03/25/23 14:51 Pulse Ox 96 03/25/23 14:51 Oxygen Delivery Method Room Air 03/25/23 14:51 BMI result Body Mass Index 24.5 Const Nutritional Appearance: obese morbidly obese Eyes General: appearance normal, both eyes and all related structures Pupils: Equal, round and reactive pupils present EOM: EOMs intact bilaterally Neck Neck: Yes full ROM Chest Chest palpation & inspection: normal inspection of the chest Resp Effort & Inspection: normal respiratory effort, able to speak in complete sentences, normal respiratory pattern, no audible wheezes and no cough Cardio Jugular venous distension: no JVD GI Inspection: Yes normal to inspection Back/Spine/Pelvis Other: Tenderness of palpation in paraspinal spinal region in projection of L1-L2 L3 and L4 vertebra. Very well-healed scar in the projection L4-5 and S1 vertebra paraspinal regions and spinal regions in projection of L5 are L5 and S1 vertebra is are not tender on palpation. Flexing forward alleviates his pain and flexing backward aggravates his pain. Straight leg rising is negative for pain increase. Neri test is negative for pain increase. Lateral hip rotation aggravates pain in the hip but does not cause significant pain in the groin. Most likely this is a result of bilateral hip surgery. He denies incontinence with bowel and bladder. He denies urinary retention. He is able to stand on his toes and his heels demonstrating normal strength of bilateral lower extremities. Valsalva maneuver is negative for pain increase. Neuro General: CN's II-XI intact bilaterally Cranial nerves: Yes Equal, round and reactive pupils present Speech: No Abnormal speech present Gait exam (Neuro): Normal gait present Motor exam (neuro): 5/5 motor strength present throughout Sensory Exam: double simultaneous stimulation for sensation normal Extrem General: No pedal edema Assessment & Plan Assessment & Plan (1) Spinal cord stimulator dysfunction: Code(s): T85.192A - Other mechanical complication of implanted electronic neurostimulator of spinal cord electrode (lead), initial encounter (2) Low back pain: Code(s): M54.5 - Low back pain (3) Postlaminectomy syndrome: Code(s): M96.1 - Postlaminectomy syndrome, not elsewhere classified (4) Alcoholism: Code(s): F10.20 - Alcohol dependence, uncomplicated (5) Spondylosis of lumbar region without myelopathy or radiculopathy: Code(s): M47.816 - Spondylosis without myelopathy or radiculopathy, lumbar region Plan Patient after 1 year suffers from increased pain which is not covered by his spinal cord stimulator. He reported that for years it was a good coverage which relieve his pain however 1 week ago the pain came back as it was before. He reports that this is the same in nature pain he had when he had this procedure done with me. On the x-ray of the thoracic spine we saw some changes which could be evidence of electrode change position. However it seem to me that electrodes positioned in parallel in the posterior portion of the mid T8, entire T9 and entire T10 vertebra is efficiently covering T9-T10 required SCS position. He will contact with new commercial pest control representative [employer] and will try to adjust the stimulation to improve his satisfaction. X-ray of the lumbar spine did not demonstrate any significant laxity in the electrodes traveling from lumbar to thoracic epidural space. Coding Level of Care Code Est Pt Level 3 (68712) Diagnoses Spinal cord stimulator dysfunction T85.192A Low back pain M54.5 Postlaminectomy syndrome M96.1 Alcoholism F10.20 Spondylosis of lumbar region without myelopathy or radiculopathy M47.816
[2023-03-25 14:51] VITALS: BP 134/62; PULSE 96; RESP 16; O2SAT 96; BMI 24.5
== END 2023-03-25 15:37 | disposition home or self-care (01) ==
PROVIDERS: PCP Internal Medicine; Visit Provider Anesthesiology
DX: T85.192A Other mechanical complication of implanted electronic neurostimulator of spinal cord electrode (lead), initial encounter (principal); M54.50 Low back pain, unspecified; M96.1 Postlaminectomy syndrome, not elsewhere classified; F10.20 Alcohol dependence, uncomplicated; M47.816 Spondylosis without myelopathy or radiculopathy, lumbar region
CPT/HCPCS: 99213

== ENCOUNTER → 2023-03-25 14:43 | Outpatient (BNVA) | payer OTHER, SELFPAY | PROVIDERS: PCP Internal Medicine; Visit Provider Anesthesiology | DX: T85.192A Other mechanical complication of implanted electronic neurostimulator of spinal cord electrode (lead), initial encounter (principal); M54.50 Low back pain, unspecified; M96.1 Postlaminectomy syndrome, not elsewhere classified; M47.816 Spondylosis without myelopathy or radiculopathy, lumbar region; F10.20 Alcohol dependence, uncomplicated | CPT/HCPCS: 99212 ==